=== PATIENT | female | born 1985 | race Caucasian/White ===

== ENCOUNTER 2023-10-16 09:25 | Emergency (ER) | payer OTHER, SELFPAY ==
[2023-10-16 09:29] VITALS: BP 142/98
[2023-10-16 09:48] VITALS: BMI 35.2
--- NOTE | 2023-10-16 09:49 | ED.GENMED ---
History of Present Illness
General
Chief Complaint: Abdominal Pain
Source: patient
Exam Limitations: none
Time Seen by Provider: 10/16/23 09:34
Nursing documentation reviewed up to this point in time: agreed with
Travel History
Have you had any contact with someone who has COVID-19?: No
Do you have any symptoms of coronavirus? Fever > 100 degrees, chills, cough, shortness of breath, sore throat, loss of taste or smell, muscle aches, or headache?: No
History of Present Illness
History of Present Illness:
38-year-old female with a past medical history as documented who presents to the emergency room for evaluation of abdominal pain. Patient reports onset of symptoms yesterday shortly after lunch and they have been constant and generally worsening
since that time. She reports a vague pain in the periumbilical region that radiates slightly towards the right side. She says it is worse with movement but she still has pain with rest. No relieving factors noted. She says she has associated
very poor appetite and has not eaten today. She denies nausea or vomiting. Denies diarrhea or constipation. Denies any dysuria, hematuria, change in urinary frequency. She denies any vaginal bleeding or discharge. Last menstrual period was 3
weeks ago. She denies any history of prior abdominal surgeries.
Past History
Past History
ED Past Medical History: Asthma, GERD and Other (Pulmonary emboli presumably from contoll pills.)
ED Past Surgical History:
Social History
Tobacco: Non-smoker
Alcohol: None
Drug: None
Personal:
Living: with family
Review of Systems
Review of Systems
All Other Systems: ROS reviewed and negative except as documented in HPI and ROS
Constitutional: Denies fever or chills
EENT: Denies sore throat or runny nose
Respiratory: Denies cough or trouble breathing
Cardiac: Denies chest pain or palpitations
ABD/GI: Reports abdominal pain and anorexia; Denies nausea, vomiting, diarrhea or constipated
: Denies dysuria, frequency, flank pain or bleeding
Musculoskeletal: Denies neck pain or back pain
Neurological: Denies headache, weakness or numbness
Phy Exam
Physical Exam
Physical Exam:
General: Awake, alert, oriented x3; no acute distress
Head: Normocephalic, atraumatic
Eyes: Conjunctiva normal, sclera anicteric
Throat: Airway intact, handling secretions
Neck: Trachea midline, supple without meningismus
Lungs: Clear to auscultation bilaterally, no wheezing, rales, rhonchi
Heart: Regular rate and rhythm, no murmurs, gallops, or rubs
Abd: Soft, non distended, tender to palpation right lower quadrant and periumbilical region with no peritoneal signs and no abdominal masses
Back: No CVA tenderness
Neuro: Cranial nerves grossly intact, speech fluid
Skin: no rash
Extremities: Warm well-perfused with no edema
Scores
Heart Failure Risk
Heart Failure Risk Score: Not Applicable
Heart Score for Chest Pain Patients
STEMI patient?: Not applicable
Withdrawal Assessment of Alcohol
Withdrawal Assessment Completed?: Not applicable
Course
Orders/Labs/Results
Orders:
Orders
10/16/23 09:35
CT Abd/pel W Iv And Oral Contr Urgent
Comment:
Reason For Exam: periumbilical abd pain
Iohexol [Omnipaque] See Protocol PO NOW STA
Test Result ONCE
10/16/23 09:56
Complete Blood Count/With Diff Urgent
Comprehensive Metabolic Panel Urgent
HCG, Serum Qualitative Screen Urgent
Urinalysis Reflex To Culture Urgent
Date Specimen was Collected: 10/16/23
Time Specimen was Collected: 09:55
Urine Microscopic Reflex Cult Urgent
Abnormal Lab Results
10/16/23
09:56
Glucose 115 H mg/dl
(70-99)
Urine Bilirubin 1+ A
(Negative)
Leukocyte Esterase Rfl Trace A
(Negative)
Urine Bacteria (Reflex) Few A
(Negative)
10/16/23 09:56
10/16/23 09:56
Vital Signs
Initial and Last Documented VS:
Initial Vital Signs
Temp Pulse BP Pulse Ox
36.9 C 93 142/98 98
10/16/23 09:29 10/16/23 09:29 10/16/23 09:29 10/16/23 09:29
Last Documented Vital Signs
Temp Pulse Resp BP Pulse Ox
36.9 C 89 16 140/94 99
10/16/23 09:29 10/16/23 09:51 10/16/23 09:51 10/16/23 09:51 10/16/23 09:51
MDM/Problems Addressed
Differential Diagnosis Includes:
Appendicitis, cholecystitis, cholelithiasis, enteritis, constipation, ovarian cyst, UTI, nephrolithiasis, abdominal wall
MDM/Problems Addressed:
38-year-old female presents for evaluation of periumbilical abdominal pain radiating towards the right side started yesterday after lunch and generally worsening since then. Worse with movement. Associated with poor appetite. Vital signs are
normal here. Exam as above�notably tender in the right lower quadrant and periumbilical region without peritoneal signs. Will plan to place an IV check labs including CBC and a CMP, hCG. Will send a urinalysis. Will send for CT of the abdomen
pelvis. Will monitor closely reassess after the above. Offered pain control, patient declined for now.
Labs reviewed: CBC unremarkable, CMP no clinically significant abnormalities. hCG is negative. Urinalysis no signs of infection. CT of the abdomen pelvis shows no acute intra-abdominal pathology�appendix visualized and normal. Clinical
reassessment patient well-appearing with reassuring vitals. 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
possibly this is abdominal wall strain. At this point there is no clear indication for admission�will plan to discharge advised patient to rest and if symptoms are persistent or worsening or she develops any new symptoms she should return for
reassessment. Otherwise she will follow-up with her primary physician. She feels comfortable with this plan. All questions answered.
Acute Exacerbation and/or Progression of Chronic Illness: HTN
*Radiology
Radiology exam reviewed: radiology read reviewed
*Pulse Oximetry
Patient hypoxic: no
*Critical Care Note
Total Time (30-74mins, 75-104mins- exclusive of procedures): Not Applicable
Data Reviewed
Source: patient
ED Attending Note
-
Portions of this chart may have been created with voice recognition software.� Occasional wrong word or��sound alike� substitutions may have occurred due to the inherent limitations of voice recognition software.
Discharge Plan
Departure
Patient Disposition: Home (Routine Discharge)
Date of Disposition: 10/16/23
Time of Disposition: 13:04
Patient with high blood pressure during this ER visit?: Yes
Discharge Problem:
Abdominal pain
Instructions: Abdominal Pain
Prescriptions:
No Action
albuterol sulfate 1 PUFF HFA aerosol inhaler
1 puff inhalation R Q4HPRN PRN (Reason: sob)
cetirizine-pseudoephedrine [Zyrtec-D] 1 EACH tablet extended release 12 hr
1 ea PO DAILY
prednisone 50 MG tablet
50 mg PO DAILY Qty: 5 0RF
albuterol sulfate 2.5 MG/3 ML solution for nebulization
2.5 mg inhalation R Q4HPRN PRN (Reason: cough/SOB) Qty: 50 0RF
montelukast 10 MG tablet
10 mg PO QPM Qty: 30 0RF
fluticasone propionate 1 SPRAY spray,suspension
1 spray intranasal DAILY
benzonatate 100 MG capsule
100 mg PO TIDPRN PRN (Reason: cough) Qty: 21 0RF
fluticasone propionate [Flovent HFA] 1 PUFF HFA aerosol inhaler
2 puff inhalation R BID Qty: 1 0RF
Referrals:
Emma Toney MD [Family Provider] - Call in 1-3 days for appt
Activity Restrictions/Additional Instructions:
Thank you for visiting the Emergency Department at [facility].
1. Please schedule a follow up appointment as directed. Call first thing tomorrow morning to make an appointment.
2. If indicated, please take your medications as instructed and indicated on discharge paperwork.
3. If any of your symptoms do not improve, or persist, or become more severe within 6-12 hours, please return to the emergency department for further care.
4. Please return to the emergency department if you develop a headache, neck pain/stiffness, fever greater than 100.4F, chest pain, shortness of breath, persistent nausea, vomiting, slurred speech, difficulty walking, numbness/tingling, weakness,
signs of infection or any other symptoms that are worrisome to you.
Please call [phone] if you have any questions.
Interventions
Interventions:
*Risk Screen - Suicide Last Done: 10/16/23 09:29
*General Assessment Last Done: 10/16/23 09:29
*Neglect/Abuse Screening Last Done: 10/16/23 09:29
ED- Fall Risk Assessment Last Done: 10/16/23 09:51
*ED COVID-19 Vaccine History Last Done: 10/16/23 09:29
QS-Vxunrj-Snbqbtnkcg Assessment Last Done: 10/16/23 09:51
[2023-10-16 09:51] VITALS: BP 140/94
[2023-10-16] MEDS: OMNIPAQUE 50 ML PO (09:53)
[2023-10-16 10:12] LABS: Urine Albumin Trace (Neg - Trace); Urine Bilirubin 1+ (Negative); Urine Character Clear (Clear); Urine Color Yellow; Urine Glucose Negative (Negative); Urine Ketone Negative (Negative); Urine Leukocyte Trace (Negative); Urine Nitrite Negative (Negative); Urine Occult Blood Negative (Negative); Urine Urobilinogen Negative (Neg - 1+)
[2023-10-16 10:17] LABS: % Basophils 0.6 % (0-2); % Eosinophils 1.2 % (0-6); % Immature Granulocytes 0.4 % (0-0.5); % Lymphocytes 20.9 % (20.5-51.1); % Monocytes 7.1 % (1.7-9.3); % Neutrophils 69.8 % (42.2-75.2); Absolute Basophils 0.1 10^3/uL (0-0.2); Absolute Eosinophils 0.1 10^3/uL (0-0.7); Absolute Lymphocytes 1.8 10^3/uL (1.2-3.4); Absolute Monocytes 0.6 10^3/uL (0.1-0.6); Absolute Neutrophils 5.9 10^3/uL (1.4-6.5); Hematocrit 41.2 % (37.0-47.0); Hemoglobin 14.2 g/dL (12.0-16.0); Mean Corp Hgb Conc. 34.5 g/dL (33.0-37.0); Mean Corpuscular Volume 84.1 fL (81.0-99.0); Mean Platelet Volume 9.8 fL (7.4-10.4); Nucleated Red Blood Cells % 0 %; Platelet Count 317 10^3/uL (130-400); Red Cell Dist. Width 12.8 % (11.5-14.5); White Blood Cell Count 8.5 10^3/uL (4.8-10.8)
[2023-10-16 10:24] LABS: Urine Squamous Cell >30 /LPF (Few)
[2023-10-16 10:26] LABS: Urine Bacteria Few (Negative)
[2023-10-16 10:27] LABS: Urine Mucus Many
[2023-10-16 10:29] LABS: ALT (SGPT) 23 U/L (0-35); AST (SGOT) 23 U/L (14-36); Albumin 4.1 g/dl (3.5-5.0); Alkaline Phosphatase 109 U/L (38-126); Blood Urea Nitrogen 16 mg/dl (7-17); Calcium 9.2 mg/dl (8.4-10.2); Carbon Dioxide 26 mmol/L (22-30); Chloride 106 mmol/L (98-107); Estimated Creatinine Clearance > 125 ml/min; Glucose 115 mg/dl (70-99); Potassium 4.1 mmol/L (3.5-5.1); Sodium 137 mmol/L (135-145); Total Bilirubin 0.8 mg/dl (0.2-1.3); Total Protein 7.2 g/dl (6.3-8.2); Urine Red Blood Cell 0-2 /HPF (0-2); eGFR > 60.00
[2023-10-16 10:42] LABS: HCG, Serum Qualitative Screen Negative
[2023-10-16 13:20] VITALS: BP 124/85
== END 2023-10-16 13:22 | disposition home or self-care (01) ==
LOC: EMR 09:25
PROVIDERS: EMERGENCY PHYSICIAN Emergency Medicine; FAMILY PHYSICIAN Family Medicine
DX: R10.33 Periumbilical pain (principal); R03.0 Elevated blood-pressure reading, without diagnosis of hypertension
CPT/HCPCS: 99285; 74177; 80053; 81003; 81015; 84703; 85025; Q9967